=== PATIENT | male | born 1985 | race Hispanic/Latino ===

== ENCOUNTER 2018-02-08 12:22 | Emergency (ER) | payer OTHER ==
[2018-02-08] MEDS ORDERED: KETOROLAC TROMETHAMINE 60 MG/2 ML VIAL ONE (13:34)
== END 2018-02-08 14:09 | disposition home or self-care (01) ==
LOC: EDH 12:22
DX: S62.398A Other fracture of other metacarpal bone, initial encounter for closed fracture (principal); W18.39XA Other fall on same level, initial encounter; Y93.89 Activity, other specified; Y92.89 Other specified places as the place of occurrence of the external cause; Y99.8 Other external cause status; Z72.0 Tobacco use
CPT/HCPCS: 29125; 73130; 96372; 99284; J1885

== ENCOUNTER 2020-09-05 00:43 | Emergency (ER) | payer SELFPAY ==
[2020-09-05] MEDS ORDERED: ONDANSETRON HCL 4 MG/2 ML VIAL ONE (01:09)
[2020-09-05] MEDS ORDERED: MORPHINE SULFATE 4 MG/1ML SYG ONE (01:10)
== END 2020-09-05 02:36 | disposition home or self-care (01) ==
LOC: EDH 00:43
DX: S42.202A Unspecified fracture of upper end of left humerus, initial encounter for closed fracture (principal); Z72.0 Tobacco use; W10.8XXA Fall (on) (from) other stairs and steps, initial encounter; Y93.89 Activity, other specified; Y92.89 Other specified places as the place of occurrence of the external cause; Y99.8 Other external cause status
CPT/HCPCS: 73060; 96374; 96375; 99284; J2270; J2405